=== PATIENT | female | born 1955 | race Caucasian/White ===

== ENCOUNTER 2024-05-18 11:32 | Emergency (ER) | payer BC, SELFPAY ==
[2024-05-18 11:34] VITALS: BP 135/90
--- NOTE | 2024-05-18 12:29 | ED.GENMED ---
History of Present Illness
<Clarita Brandon PA-C - Last Filed: 05/19/24 11:45>
General
Chief Complaint: Skin Problem
Source: patient
Exam Limitations: none
Time Seen by Provider: 05/18/24 11:48
Nursing documentation reviewed up to this point in time: agreed with
History of Present Illness
History of Present Illness:
Patient is a 61-year-old female presenting to the emergency department for evaluation of wound on left knee. Patient states that 16 days ago she had a mechanical trip and fall out her back patio scraping her left knee. She initially cleaned it
with soap and water over the following few days she became concerned that infection was developing in the wound. She was seen at [facility] on 05/06 where she was started on a course of Keflex for mild cellulitis. She completed the course of
Keflex which was 5 days in length and still had lingering pain and concern of infection. She was seen in urgent care on 05/14 where they noted possible very mild cellulitis. They then started her on a course of Bactrim for which she has been taking
for the past 4 days. Patient denies any fever, chills, nausea, vomiting, weakness.
Patient states she still has pain and is concerned about the infection not clearing on her left leg. Patient is very concerned that she will develop sepsis as she had any over the past week from this.
Patient presents the emergency department for further evaluation and a wound culture.
Past History
<Clarita Brandon PA-C - Last Filed: 05/19/24 11:45>
Past History
ED Past Medical History: Psychiatric
Social History
Tobacco: Non-smoker
Alcohol: None
Drug: None
Personal:
Living: with family
Employment: Retired
Family History
Family History: Other (Noncontributory)
Review of Systems
<Clarita Brandon PA-C - Last Filed: 05/19/24 11:45>
Review of Systems
Allergies reviewed?: Yes
All Other Systems: ROS reviewed and negative except as documented in HPI and ROS
Phy Exam
<Clarita Brandon PA-C - Last Filed: 05/19/24 11:45>
Physical Exam
Physical Exam:
Vitals: Tachycardic, otherwise vital signs stable. Afebrile
General: Patient is anxious appearing, no acute distress. Nontoxic appearing
Skin: Approximately 2cm round healing wound just inferior to left knee with very mild surrounding erythema and minimal granulation tissue at base of wound. No surrounding edema or red streaking.
Head: Normocephalic, atraumatic
Eyes: Sclera nonicteric. EOMs intact. No nystagmus.
Throat: Mild thrush. Protecting airway
Neck: Normal ROM, no cervical spine tenderness, no meningismus
Cardiac: Regular rate and rhythm, no murmurs.
Pulm: Normal respiratory effort, no wheezes, rales, rhonchi heard on exam.
Abdomen: No abdominal tenderness.
Extremities: Healing wound to left superior wilkinson as described above. Full range of motion in left knee and left ankle without pain. No knee effusion.No pain with internal/external rotation of left hip. Great distal pules. Sensation fully intact.
Neuro: AAOx3. CN II-XII intact. No focal neurologic deficits.
Psychiatric: Anxious.
Course
<Clarita Brandon PA-C - Last Filed: 05/19/24 11:45>
Orders/Labs/Results
Orders:
Orders
05/18/24 12:28
Wound Culture [Wound/Abscess/Other Culture] Urgent
MARIMAR Source: Knee
Specimen Description: Left
Date Specimen was Collected: 05/18/24
Time Specimen was Collected: 12:25
Vital Signs
Initial and Last Documented VS:
Initial Vital Signs
Temp Pulse Resp BP Pulse Ox
98.6 F 114 18 135/90 96
05/18/24 11:34 05/18/24 11:34 05/18/24 11:34 05/18/24 11:34 05/18/24 11:34
Last Documented Vital Signs
Temp Pulse Resp BP Pulse Ox
98.6 F 98 18 128/80 96
05/18/24 11:34 05/18/24 13:42 05/18/24 13:42 05/18/24 13:42 05/18/24 13:42
<Latrell Harper DO - Last Filed: 05/18/24 13:16>
Orders/Labs/Results
Orders:
Orders
05/18/24 12:28
Wound Culture [Wound/Abscess/Other Culture] Urgent
MARIMAR Source: Knee
Specimen Description: Left
Date Specimen was Collected: 05/18/24
Time Specimen was Collected: 12:25
Vital Signs
Initial and Last Documented VS:
Initial Vital Signs
Temp Pulse Resp BP Pulse Ox
98.6 F 114 18 135/90 96
05/18/24 11:34 05/18/24 11:34 05/18/24 11:34 05/18/24 11:34 05/18/24 11:34
Last Documented Vital Signs
Temp Pulse Resp BP Pulse Ox
98.6 F 98 18 128/80 96
05/18/24 11:34 05/18/24 13:42 05/18/24 13:42 05/18/24 13:42 05/18/24 13:42
<Clarita Brandon PA-C - Last Filed: 05/19/24 11:45>
MDM/Problems Addressed
Differential Diagnosis Includes:
Not limited to: normal healing process, mild cellulitis, oral thrush
MDM/Problems Addressed:
69 year old female presenting with healing wound on left lower leg and concern for worsening infection. No associated fever, chills, nausea. Patient ambulating without difficulty. Has completed a course of keflex and currently on course of bactrim.
Vitals stable, afebrile. Patient anxious appearing although nontoxic. There is a well healing wound on left lower leg just inferior to knee with no evidence of cellulitis. Very mild surround erythema and minimal granulation tissue at base. Patient
has excellent range of motion of left knee without any bony tenderness. Mild oral thrush. No indication for imaging of knee at this time. Wound culture was obtained although low suspicion for bacterial infection at this time. Very lengthy discussion
with patient regarding no signs of infection. Patient will complete course of Bactrim. Will send clotrimazole lozenges for thrush. Recommended tetanus booster but patient declined - will have updated with primary care. Return precautions discussed.
Chronic conditions affecting care:
N/A
Acute Exacerbation and/or Progression of Chronic Illness:
N/A
<Clarita Brandon PA-C - Last Filed: 05/19/24 11:45>
*Pulse Oximetry
Patient hypoxic: no
*EKG
Interpreted by ED Provider?: NA
*Cylinder Head Assembler Interpretation
Rate: Cylinder Head Assembler- N/A
*Critical Care Note
Total Time (30-74mins, 75-104mins- exclusive of procedures): Not Applicable
ED Attending Note
<Clarita Brandon PA-C - Last Filed: 05/19/24 11:45>
-
Portions of this chart may have been created with voice recognition software.� Occasional wrong word or��sound alike� substitutions may have occurred due to the inherent limitations of voice recognition software.
<Latrell Harper DO - Last Filed: 05/18/24 13:16>
ED Attending Note
Patient seen and examined by attending physician: Yes
I performed the substantive portion of visit, reviewed & personally made and approve the management plan that is documented in note by myself or TYLOR.: Yes
ED Attending Note:
I have seen and evaluated the patient with a [id number] encounter. I have spoken to the advance practicer provider and involved in the medical history, the physical exam, medical decision making.
Evaluation and management service: agree unless noted differently below.
Results interpretation: agree unless noted differently below.
Focused HPI: 69-year-old female presenting for evaluation of left knee wound. She had a trip and fall and was on Keflex for cellulitis. He was recently changed to Bactrim 5 days ago. Patient want to make sure that it is not infected.
Physical exam: Well-healing small superficial wound to left leg just below knee. No surrounding cellulitis. No knee effusion. Patient moving knee without difficulty
Medical Decision Making: I had a long discussion with patient indicating that is not infected. We discussed continuing the Bactrim until it is over. She does have mild thrush. Will write for clotrimazole lozenges. Discussed follow-up with doctor
Discharge Plan
Departure
Patient Disposition: Home (Routine Discharge)
Date of Disposition: 05/18/24
Time of Disposition: 13:16
Patient with high blood pressure during this ER visit?: Yes
Condition: Good
Covid-19: Not Applicable
Discharge Problem:
Leg wound, left, Oral thrush
Instructions: Thrush in adults, Wound Care (DC), BLOOD PRESSURE
Prescriptions:
New
clotrimazole 10 mg monserrat
See Rx Instructions .ROUTE .COMPLEX Qty: 35 0RF
Rx Instructions:
10 mg to affected mucosal area 5 times per day x 7 days
No Action
lorazepam 0.5 MG tablet
0.5 mg PO HS
ciprofloxacin-dexamethasone [Ciprodex] 7.5 ML drops,suspension
3 drp OT BID Qty: 10 0RF
Rx Instructions:
3 drops in right ear twice a day for 7-10 days
nystatin 5 ML suspension
5 ml PO QID 5 Days Qty: 100 0RF
metoprolol succinate [Toprol XL] 25 MG tablet extended release 24 hr
25 mg PO DAILY Qty: 30 0RF
Referrals:
UNKNOWN - PT DOES,NOT KNOW [Family Provider] -
Activity Restrictions/Additional Instructions:
RETURN TO THE EMERGENCY DEPARTMENT WITH ANY FEVERS, SIGNIFICANT SWELLING/REDNESS AROUND WOUND, RED STREAKING FROM WOUND, PUS DRAINING FROM WOUND, INTRACTABLE PAIN, OR ANY OTHER CONCERNS
-As discussed�you should complete the course of Bactrim as prescribed at the urgent care. You should keep wound clean and dry. A wound culture has been sent and we will give you a call if these results warrant a change in your antibiotics.
-A prescription for lozenges have been sent to your pharmacy that you can use for the next week to help with your oral thrush.
-Follow-up with your primary care for further evaluation/management and to ensure that symptoms are improving within the next week
Monitor your symptoms closely return to the emergency department any acute worsening/new symptoms
Interventions
Interventions:
*Risk Screen - Suicide Last Done: 05/18/24 11:34
*General Assessment Last Done: 05/18/24 11:34
*Neglect/Abuse Screening Last Done: 05/18/24 11:34
*Nursing Disposition Last Done: 05/18/24 13:47
ED-Skin Assessment Last Done: 05/18/24 13:36
Discharge Date and Time
Discharge Date/Time: 05/18/24 13:47
Print Language: CANADIAN
[2024-05-18 13:42] VITALS: BP 128/80
== END 2024-05-18 13:47 | disposition home or self-care (01) ==
LOC: EMR 11:32
PROVIDERS: EMERGENCY PHYSICIAN Student in an Organized Health Care Education/Training Program
DX: S81.802A Unspecified open wound, left lower leg, initial encounter (principal); W01.0XXA Fall on same level from slipping, tripping and stumbling without subsequent striking against object, initial encounter; B37.0 Candidal stomatitis; R03.0 Elevated blood-pressure reading, without diagnosis of hypertension
CPT/HCPCS: 99283; 87070; 87205

== ENCOUNTER 2024-06-11 17:44 | Emergency (ER) | payer BC, MEDICARE, SELFPAY ==
[2024-06-11 17:48] VITALS: BP 92/65
--- NOTE | 2024-06-11 19:01 | ED.GENMED ---
History of Present Illness
General
Chief Complaint: Urinary Symptoms
Time Seen by Provider: 06/11/24 18:59
History of Present Illness
History of Present Illness:
HPI: The patient presents with multiple complaints and concerns. Several months ago, the patient fell and scraped her knee. She went to urgent care where there was some concern for infection was placed on Keflex 4 times per day. She had ongoing
concerns for infection she was show he was placed on Bactrim. Since then she has had some skin irritation and itchiness but currently there are no lesions on the skin noted. She thinks there is some thrush on her tongue but I do not see evidence
of this on exam. She also was concerned of vaginal irritation/redness. She is concerned about a fungal infection such as fungemia. She has been using a lot of Florastor and was concerned of fungal overgrowth.
EXAM:
GENERAL: Well appearing in no distress
HEENT: Moist oral mucosa
NEUROLOGIC: Excellent strength all extremities, no coordination deficits
: With jose Harrington, as dope dry house operator in the room, there was no external genitalia lesions, there is no vulvar lesions and no lesions at the introitus, there is some vague patchy erythema lateral to the external genitalia�I had relatively low
suspicion for infectious etiology
PSYCHIATRIC: The patient appears overly concerned of medical conditions, she has some pressured speech, she appears somewhat anxious
EXTREMITIES: Nontender, no edema, moves all extremities equally
SKIN: No rash, no lesions
TIME OF INITIAL ENCOUNTER: 7:40 PM
NUMBER AND COMPLEXITY OF PROBLEMS ADDRESSED AT THE ENCOUNTER
� Chronic conditions affecting care: Anxiety
� Acute Exacerbation and/or Progression of Chronic Illness: This is an acute problem
� Differential Diagnosis includes: The patient is afebrile therefore doubt sepsis/fungemia, anxiety, vaginal yeast infection
AMOUNT AND/OR COMPLEXITY OF DATA TO BE REVIEWED AND ANALYZED
� I performed an independent evaluation of and my interpretation is:
EKG:
CT:
X-rays:
Laboratory Studies: The urinalysis shows no evidence of infection
Other:
� Review of other/old records: I reviewed records, The patient was seen here in April with a left leg wound
� Clinical information was obtained by an independent historian: None needed
� Prescriptions/Medications Considered but not given:
� Further testing considered but not performed:
RISK OF COMPLICATIONS AND/OR MORBIDITY OR MORTALITY OF PATIENT MANAGEMENT
� Social determinants of health affecting care: Lives at home
� Discussion with other providers: I called the micro lab�we do not have any bottles here compatible with testing for fungal blood culture
� Escalation of care including admission/observation vs risk of discharge considered: The patient is afebrile. She was initially slightly hypotensive but very well-appearing. Very low suspicion for serious infection such as
fungal anemia or sepsis or bacteremia. The patient appears to perseverate over her medical care include concerns for a bloodstream fungal infection. Of note the patient brought in her own bed sheets to use, her own gloves, and she was double
masked.
Past History
Past History
ED Past Medical History: Psychiatric
Social History
Tobacco: Non-smoker
Alcohol: None
Drug: None
Personal:
Living: with family
Employment: Retired
Family History
Family History: Other (Noncontributory)
Phy Exam
Physical Exam
Physical Exam:
See HPI
Course
Orders/Labs/Results
Orders:
Orders
06/11/24 20:29
Urinalysis Reflex To Culture Urgent
Date Specimen was Collected: 06/11/24
Time Specimen was Collected: 20:22
06/11/24 21:39
Fluconazole [Diflucan] 150 mg PO NOW STA
Vital Signs
Initial and Last Documented VS:
Initial Vital Signs
Temp Pulse Resp BP Pulse Ox
98.7 F 98 18 92/65 96
06/11/24 17:48 06/11/24 17:48 06/11/24 17:48 06/11/24 17:48 06/11/24 17:48
Last Documented Vital Signs
Temp Pulse Resp BP Pulse Ox
98.7 F 98 22 92/65 96
06/11/24 17:48 06/11/24 17:48 06/11/24 22:15 06/11/24 17:48 06/11/24 17:48
*Critical Care Note
Total Time (30-74mins, 75-104mins- exclusive of procedures): Not Applicable
ED Attending Note
-
Portions of this chart may have been created with voice recognition software.� Occasional wrong word or��sound alike� substitutions may have occurred due to the inherent limitations of voice recognition software.
Discharge Plan
Departure
Patient Disposition: Home (Routine Discharge)
Date of Disposition: 06/11/24
Time of Disposition: 21:09
Patient with high blood pressure during this ER visit?: Yes
Discharge Problem:
Rash
Instructions: Fungal Skin Rash (DC)
Prescriptions:
New
fluconazole [Diflucan] 100 mg tablet
100 mg PO DAILY Qty: 5 0RF
No Action
lorazepam 0.5 MG tablet
0.5 mg PO HS
ciprofloxacin-dexamethasone [Ciprodex] 7.5 ML drops,suspension
3 drp OT BID Qty: 10 0RF
Rx Instructions:
3 drops in right ear twice a day for 7-10 days
nystatin 5 ML suspension
5 ml PO QID 5 Days Qty: 100 0RF
metoprolol succinate [Toprol XL] 25 MG tablet extended release 24 hr
25 mg PO DAILY Qty: 30 0RF
clotrimazole 10 mg monserrat
See Rx Instructions .ROUTE .COMPLEX Qty: 35 0RF
Rx Instructions:
10 mg to affected mucosal area 5 times per day x 7 days
Referrals:
UNKNOWN - PT DOES,NOT KNOW [Family Provider] -
Activity Restrictions/Additional Instructions:
The cause of your symptoms is unclear. We have given a dose of Diflucan. If your symptoms persist on Friday you could continue the Diflucan for a few more days. Follow-up your primary care doctor.
Interventions
Interventions:
*Risk Screen - Suicide Last Done: 06/11/24 17:48
*General Assessment Last Done: 06/11/24 17:48
*Neglect/Abuse Screening Last Done: 06/11/24 17:48
ED- Fall Risk Assessment Last Done: 06/11/24 21:41
*ED COVID-19 Vaccine History Last Done: 06/11/24 22:15
*Nursing Disposition Last Done: 06/11/24 22:15
ED-Female Genitourinary Assessment Last Done: 06/11/24 21:41
Discharge Date and Time
Discharge Date/Time: 06/11/24 22:17
Print Language: FAROESE
[2024-06-11 20:47] LABS: Urine Albumin Negative (Neg - Trace); Urine Bilirubin Negative (Negative); Urine Character Clear (Clear); Urine Color Yellow; Urine Glucose Negative (Negative); Urine Ketone Negative (Negative); Urine Leukocyte Negative (Negative); Urine Nitrite Negative (Negative); Urine Occult Blood Negative (Negative); Urine Specific Gravity 1.005 (<1.030); Urine Urobilinogen Negative (Neg - 1+)
[2024-06-11] MEDS: DIFLUCAN 150 MG PO (21:51)
== END 2024-06-11 22:17 | disposition home or self-care (01) ==
LOC: EMR 17:44
PROVIDERS: EMERGENCY PHYSICIAN Emergency Medicine
DX: R21 Rash and other nonspecific skin eruption (principal); R03.0 Elevated blood-pressure reading, without diagnosis of hypertension; F41.9 Anxiety disorder, unspecified
CPT/HCPCS: 99283; 81003

== ENCOUNTER → 2024-06-18 08:13 | Outpatient (REF) | payer BC, MEDICARE, SELFPAY | LOC: WOUND 08:13 | PROVIDERS: ATTENDING PHYSICIAN Surgery | DX: S80.02XA Contusion of left knee, initial encounter (principal); L90.5 Scar conditions and fibrosis of skin; W19.XXXA Unspecified fall, initial encounter | CPT/HCPCS: 99203 ==